=== PATIENT | female | born 1990 | race Caucasian/White ===

== ENCOUNTER 2017-04-21 19:33 | Emergency (ER) | payer MEDICAID, OTHER ==
[~2017-04-21 19:33] MED LIST: METO25TA3 PO
[2017-04-21 19:38] VITALS: BP 147/71; PULSE 68; RESP 18; TEMP 98.4; O2SAT 99
--- NOTE | 2017-04-21 20:15 | PD ---
HPI Chief Complaint: Cardiac Complaint Time Seen by Provider: 20:07 Travel History International Travel<30 days: No Contact w/Intl Traveler<30days: No Traveled to known affect area: No History of Present Illness HPI 26 yo F c/o L chest wall pain with a pinching quality for about one day. She is concerned her chronic poor dentition may have lead to an infection involving her pacemaker, placed for long QT syndrome 10 years prior. Concern for fracture of the PM wires also noted by patient. No fever. Pain in the L shoulder is also noted and worse with ROM. Tenderness along the L neck also noted. No trauma or excessive use. Pt noticed the pain when she woke up. No sob. PFSH Past Medical History Asthma: Yes Blood Disorders: No Anxiety: Yes Depression: Yes Heart Rhythm Problems: Yes (LONG QT SYNDROME) Cancer: No Cardiovascular Problems: Yes High Cholesterol: No Chest Pain: No Congestive Heart Failure: No COPD: No Diminished Hearing: No Endocrine: No Genitourinary: No Immune Disorder: No Implanted Vascular Access Dvce: Yes Musculoskeletal: No Neurologic: No Psychiatric: Yes Reproductive: No Respiratory: Yes Sleep Apnea: Yes : 3 Para: 3 Past Surgical History AICD: Yes (06/27/07, REPLACED ON 04/2012 [employer]) Body Medical Devices: AICD PLACEMENT Cardiac Surgery: Yes (AICD/PACER) Ear Surgery: Yes (TUBES) Tympanostomy Tube: Yes Other Surgery: Yes (TUBES IN EARS, AND AICD PLACEMENT) Social History Alcohol Use: No Tobacco Use: Yes (1/2 PPD) Substance Use: No Allergies-Medications (Allergen,Severity, Reaction): Coded Allergies: Darvocet-N 100 (Verified Allergy, Severe, FAINT, 04/21/17) Paxil (Verified Allergy, Severe, CONFUSION, 04/21/17) Reported Meds & Prescriptions Reported Meds & Active Scripts Active Metoprolol Tartrate 25 Mg Tab 25 Mg PO BID Review of Systems Except as stated in HPI: all other systems reviewed are Neg Physical Exam Narrative GENERAL: 26 yo F, WNWD, NAD SKIN: Warm and dry. HEAD: Atraumatic. Normocephalic. EYES: Pupils equal and round. No scleral icterus. No injection or drainage. ENT: No nasal bleeding or discharge. Mucous membranes pink and moist. NECK: Trachea midline. No JVD. CARDIOVASCULAR: Regular rate and rhythm. Pacer pocket non-tender without signs trauma/infection. RESPIRATORY: No accessory muscle use. Clear to auscultation. Breath sounds equal bilaterally. GASTROINTESTINAL: Abdomen soft, non-tender, nondistended. Hepatic and splenic margins not palpable. MUSCULOSKELETAL: Extremities without clubbing, cyanosis, or edema. No obvious deformities. NEUROLOGICAL: Awake and alert. No obvious cranial nerve deficits. Motor grossly within normal limits. Five out of 5 muscle strength in the arms and legs. Normal speech. PSYCHIATRIC: Appropriate mood and affect; insight and judgment normal. Data Data Last Documented VS Vital Signs Date Time Temp Pulse Resp B/P Pulse Ox O2 Delivery O2 Flow Rate FiO2 04/21/17 19:59 77 16 04/21/17 19:38 98.4 147/71 99 Room Air VS reviewed Orders Chest, Pa & Lat (04/21/17 ) Electrocardiogram (04/21/17 19:47) MDM Medical Decision Making Medical Screen Exam Complete: Yes Emergency Medical Condition: Yes Medical Record Reviewed: Yes Differential Diagnosis NSTEMI, unstable angina, coronary vasospasm, PE, PTX, aortic dissection, pericarditis, myocarditis, endocarditis, PNA, esophageal disease, aneurysm, musculoskeletal etiologies, anxiety, cocaine/sympathomimetic abuse Narrative Course EKG sinus rate 61 normal axis intervals, corrected QT interval 445 mS Last 24 hours Impressions Chest X-Ray 04/21/17 0000 Signed Impressions: Service Date/Time: April 20:38 - CONCLUSION: No evidence of acute cardiopulmonary disease. Lenny Torres MD The patient is resting comfortably and feels better, is alert and in no distress. The patients results and examination findings were discussed. The repeat examination is unremarkable and benign. The history, exam, diagnostic testing, and current condition do not suggest any significant pathology to warrant further testing, continued ED treatment, admission, or surgical evaluation at this point. The vital signs have been stable. The patient does not have uncontrollable pain, intractable vomiting, or other significant symptoms. The patient's condition is stable and appropriate for discharge. The patient will pursue further outpatient evaluation with a primary care physician or other designated or consulting physician as indicated in the discharge instructions. The patient expressed understanding and was agreeable with this plan. Diagnosis Primary Impression: Chest pain Qualified Code: R07.9 - Chest pain, unspecified type Referrals: Leslie Murillo MD, Vincent G DO Dayana,Flo H. MD Additional Instructions: You have a choice when it comes to health care, and we are glad that you chose [facility]. Hopefully, we have met your expectations on today's visit. You are welcome to return to [facility] at any time, as we are committed to meeting the health care needs of our community. Med/Other Pt SpecificInfo: No Change to Meds Disposition: 01 DISCHARGE HOME Condition: Ismael Barton MD Apr 21, 2017 20:14
--- NOTE | 2017-04-21 20:49 | RADRPT ---
EXAM DATE/TIME: 04/21/2017 20:38 [facility] COMPARISON: Report only CHEST SINGLE AP, March 04, 2013, 20:36. INDICATIONS : Chest pain in area of pacemaker. MEDICAL HISTORY : Long QT syndrome SURGICAL HISTORY : Pacemaker. ENCOUNTER: Initial ACUITY: 1 day PAIN SCORE: 7/10 LOCATION: Left upper chest FINDINGS: PA and lateral views of the chest demonstrate the lungs to be symmetrically aerated without evidence of mass, infiltrate or effusion. The cardiomediastinal contours are unremarkable. Osseous structure s are intact. Left subclavian transvenous cardiac pacer/defibrillator again noted. CONCLUSION: No evidence of acute cardiopulmonary disease. Lenny Torres MD on April 21, 2017 at 20:45 Board Certified Radiologist. This report was verified electronically.
--- NOTE | 2017-04-22 22:39 | EKG ---
Date Performed: 04/21/2017 Time Performed: 19:47:59 PTAGE: 26 years EKG: Sinus rhythm POSSIBLE RIGHT VENTRICULAR CONDUCTION DELAY BORDERLINE ECG PREVIOUS TRACING : 06/03/2013 01.47 DOCTOR: Ling Ramos Interpretating Date/Time 04/22/2017 22:37:48
== END 2017-04-21 21:25 | disposition home or self-care (01) ==
LOC: NEPC 19:33
DX: R07.89 Other chest pain (principal); J45.909 Unspecified asthma, uncomplicated; G47.30 Sleep apnea, unspecified; F17.210 Nicotine dependence, cigarettes, uncomplicated; Z95.0 Presence of cardiac pacemaker
CPT/HCPCS: 71020; 93005; 99284

== ENCOUNTER 2018-01-01 03:10 | Emergency (ER) | payer MEDICAID ==
[~2018-01-01] VITALS: Ht 152.4 cm; Wt 54.0 kg
[2018-01-01 03:14] VITALS: BP 158/82; PULSE 99; RESP 18; TEMP 98.1; O2SAT 100
--- NOTE | 2018-01-01 03:42 | PD ---
HPI Chief Complaint: Cold / Flu Symptoms Time Seen by Provider: 03:31 Travel History International Travel<30 days: No Contact w/Intl Traveler<30days: No Traveled to known affect area: No History of Present Illness HPI 27-year-old female patient with history of prolonged QT syndrome, currently being evaluated for MS, presents to the ER today for chest discomfort over the entire chest followed by coughing and shortness of breath, coughing up brownish phlegm, body aches and pains for the last 2 days. She denies any recent fevers , vomiting, or other symptoms. She states she has been around several sick people. Modifying Factors: None Associated Signs & Symptoms: Coughing, sore throat, chest discomfort, phlegm, shortness of breath Risk Factors: Sick contacts PFSH Past Medical History Asthma: Yes Blood Disorders: No Anxiety: Yes Depression: Yes Heart Rhythm Problems: Yes (LONG QT SYNDROME) Cancer: No Cardiovascular Problems: Yes High Cholesterol: No Chest Pain: No Congestive Heart Failure: No COPD: No Diminished Hearing: No Endocrine: No Gastrointestinal Disorders: No Genitourinary: No Hypertension: No Immune Disorder: No Implanted Vascular Access Dvce: Yes Musculoskeletal: No Neurologic: No Psychiatric: Yes Reproductive: No Respiratory: Yes Sleep Apnea: Yes ?: Unknown LMP: 12/01/17 : 4 Para: 4 Past Surgical History AICD: Yes (06/27/07, REPLACED ON 04/2012 [employer]) Body Medical Devices: AICD PLACEMENT Cardiac Surgery: Yes (AICD/PACER) Ear Surgery: Yes (TUBES) Tympanostomy Tube: Yes Other Surgery: Yes (TUBES IN EARS, AND AICD PLACEMENT) Social History Alcohol Use: No Tobacco Use: Yes (A 'FEW' A DAY ) Substance Use: No Allergies-Medications (Allergen,Severity, Reaction): Coded Allergies: acetaminophen (Verified Allergy, Severe, FAINT, 01/01/18) paroxetine (Verified Allergy, Severe, CONFUSION, 01/01/18) propoxyphene (Verified Allergy, Severe, FAINT, 01/01/18) Reported Meds & Prescriptions Reported Meds & Active Scripts Active Metoprolol Tartrate 25 Mg Tab 25 Mg PO BID Review of Systems Except as stated in HPI: all other systems reviewed are Neg Physical Exam Narrative GENERAL: Well-developed young female patient currently in mild distress. Awake and oriented 3. SKIN: Focused skin assessment warm/dry. HEAD: Atraumatic. Normocephalic. EYES: Pupils equal and round. No scleral icterus. No injection or drainage. ENT: No nasal bleeding or discharge. Mucous membranes pink and moist. NECK: Trachea midline. No JVD. Supple. CARDIOVASCULAR: Regular rate and rhythm. No murmur appreciated. RESPIRATORY: No accessory muscle use. Clear to auscultation. Breath sounds equal bilaterally. GASTROINTESTINAL: Abdomen soft, non-tender, nondistended. Hepatic and splenic margins not palpable. MUSCULOSKELETAL: No obvious deformities. No clubbing. No cyanosis. No edema. NEUROLOGICAL: Awake and alert. No obvious cranial nerve deficits. Motor grossly within normal limits. Normal speech. PSYCHIATRIC: Appropriate mood and affect; insight and judgment normal. Data Data Last Documented VS Vital Signs Date Time Temp Pulse Resp B/P (MAP) Pulse Ox O2 Delivery O2 Flow Rate FiO2 01/01/18 03:14 98.1 99 18 158/82 (107) 100 Orders Orders Electrocardiogram (01/01/18 03:31) Basic Metabolic Panel (Bmp) (01/01/18 03:31) Complete Blood Count With Diff (01/01/18 03:31) Troponin I (01/01/18 03:31) Ecg Monitoring (01/01/18 03:31) Iv Access Insert/Monitor (01/01/18 03:31) Oximetry (01/01/18 03:31) Oxygen Administration (01/01/18 03:31) Sodium Chloride 0.9% Flush (Ns Flush) (01/01/18 03:45) Chest, Pa & Lat (01/01/18 03:31) Influenzae A/B Antigen (01/01/18 03:31) Labs Laboratory Tests Test 01/01/18 03:55 White Blood Count 9.3 TH/MM3 Red Blood Count 4.62 MIL/MM3 Hemoglobin 14.6 GM/DL Hematocrit 42.0 % Mean Corpuscular Volume 90.8 FL Mean Corpuscular Hemoglobin 31.6 PG Mean Corpuscular Hemoglobin Concent 34.8 % Red Cell Distribution Width 13.3 % Platelet Count 184 TH/MM3 Mean Platelet Volume 8.6 FL Neutrophils (%) (Auto) 78.6 % Lymphocytes (%) (Auto) 10.4 % Monocytes (%) (Auto) 8.5 % Eosinophils (%) (Auto) 2.3 % Basophils (%) (Auto) 0.2 % Neutrophils # (Auto) 7.3 TH/MM3 Lymphocytes # (Auto) 1.0 TH/MM3 Monocytes # (Auto) 0.8 TH/MM3 Eosinophils # (Auto) 0.2 TH/MM3 Basophils # (Auto) 0.0 TH/MM3 CBC Comment DIFF FINAL Differential Comment Blood Urea Nitrogen 8 MG/DL Creatinine 0.57 MG/DL Random Glucose 87 MG/DL Calcium Level 8.4 MG/DL Sodium Level 139 MEQ/L Potassium Level 3.8 MEQ/L Chloride Level 108 MEQ/L Carbon Dioxide Level 25.8 MEQ/L Anion Gap 5 MEQ/L Estimat Glomerular Filtration Rate 126 ML/MIN Troponin I LESS THAN 0.02 NG/ML MDM Medical Decision Making Medical Screen Exam Complete: Yes Emergency Medical Condition: Yes Medical Record Reviewed: Yes Interpretation(s) EKG shows normal sinus rhythm at a rate of 89 bpm with no signs of acute ST elevations or depressions. She does has notable prolongation of QT. Laboratory Tests Test 01/01/18 03:55 Neutrophils (%) (Auto) 78.6 % (16.0-70.0) Monocytes (%) (Auto) 8.5 % (0.0-8.0) Calcium Level 8.4 MG/DL (8.5-10.1) Chloride Level 108 MEQ/L (98-107) Troponin I LESS THAN 0.02 NG/ML Differential Diagnosis Pneumonia versus bronchitis versus influenza versus URI versus dysrhythmias Narrative Course Chest x-ray did not show any signs of acute pulmonary process. Lab work otherwise shows no significant metabolic issues. EKG did not show significant dysrhythmias. Symptoms are most indicative of a viral syndrome. At this point , my plan would be to treat her symptomatically for viral syndrome and have her follow-up with primary care doctor. Return for any worsening in symptoms as necessary. The plan has been discussed with her and she states understanding. Influenza testing was negative as well. Diagnosis Primary Impression: Bronchitis Med/Other Pt SpecificInfo: Prescription(s) given Scripts Benzonatate (Tessalon Perles) 100 Mg Cap 100 MG PO TID Y for COUGH, #15 CAP 0 Refills Prov: Leila Guerrero MD 01/01/18 Ibuprofen (Ibuprofen) 600 Mg Tab 600 MG PO Q6H Y for PAIN, #20 TAB 0 Refills Prov: Leila Guerrero MD 01/01/18 Disposition: 01 DISCHARGE HOME Condition: Stable Leila Guerrero MD Jan 01, 2018 03:42
[2018-01-01] MEDS ORDERED: SODIUM CHLORIDE 0.9% FLUSH 10 ML FLUSH IVF PRN (03:45)
--- NOTE | 2018-01-01 04:00 | RADRPT ---
EXAM DATE/TIME: 01/01/2018 03:40 [facility] COMPARISON: CHEST PA & LAT, April 21, 2017, 20:38. INDICATIONS : Cough and shortness of breath. MEDICAL HISTORY : Long QT syndrome SURGICAL HISTORY : Pacemaker. ENCOUNTER: Initial ACUITY: 2 days PAIN SCORE: 7/10 LOCATION: Bilateral chest superior FINDINGS: PA and lateral views of the chest demonstrate the lungs to be symmetrically aerated without evidence of mass, infiltrate or effusion. The cardiomediastinal contours are unremarkable. Osseous structure s are intact. Cardiac pacer/defibrillator again noted. CONCLUSION: No pneumonia or other acute abnormality. Lenny Torres MD on January 01, 2018 at 3:58 Board Certified Radiologist. This report was verified electronically.
[2018-01-01 04:25] LABS: AUTOMATED NEUTROPHIL # 7.3 TH/MM3 (1.8-7.7); BASOPHIL % 0.2 % (0.0-2.0); EOSINOPHIL # 0.2 TH/MM3 (0-0.4); EOSINOPHIL % 2.3 % (0.0-4.0); HEMOGLOBIN 14.6 GM/DL (11.6-15.3); LYMPH % 10.4 % (9.0-44.0); MEAN CELL VOLUME 90.8 FL (80.0-100.0); MEAN CORPUSCULAR HEMOGLOBIN 31.6 PG (27.0-34.0); MEAN CORPUSCULAR HGB CONC 34.8 % (32.0-36.0); MEAN PLATELET VOLUME 8.6 FL (7.0-11.0); MONO % 8.5 % (0.0-8.0); MONOCYTE # 0.8 TH/MM3 (0-0.9); NEUT % 78.6 % (16.0-70.0); PLATELET COUNT 184 TH/MM3 (150-450); RED BLOOD COUNT 4.62 MIL/MM3 (4.00-5.30); RED CELL DISTRIBUTION WIDTH 13.3 % (11.6-17.2); WHITE BLOOD COUNT 9.3 TH/MM3 (4.0-11.0)
[2018-01-01 04:35] LABS: BICARBONATE 25.8 MEQ/L (21.0-32.0); BLOOD UREA NITROGEN 8 MG/DL (7-18); CALCIUM 8.4 MG/DL (8.5-10.1); CHLORIDE 108 MEQ/L (98-107); CREATININE 0.57 MG/DL (0.50-1.00); GLOMERULAR FILTRATION RATE 126 ML/MIN (>89); GLUCOSE,RANDOM 87 MG/DL (74-106); SODIUM (NA) 139 MEQ/L (136-145)
[2018-01-01 04:38] LABS: TROPONIN I LESS THAN 0.02 NG/ML (0.02-0.05)
[2018-01-01] MEDS ORDERED: IBUP-232 PO (04:56)
[2018-01-01] MEDS ORDERED: BENZ100 PO (04:56)
--- NOTE | 2018-01-01 09:16 | EKG ---
Date Performed: 01/01/2018 Time Performed: 03:50:25 PTAGE: 27 years EKG: Sinus rhythm NORMAL ECG PREVIOUS TRACING : 04/21/2017 19.47 No significant change from previous tracing noted. DOCTOR: Flo Anne Interpretating Date/Time 01/01/2018 09:15:27
== END 2018-01-01 05:20 | disposition home or self-care (01) ==
LOC: NEPC 03:10
DX: J45.909 Unspecified asthma, uncomplicated (principal); F41.9 Anxiety disorder, unspecified; F32.9 Major depressive disorder, single episode, unspecified; F17.200 Nicotine dependence, unspecified, uncomplicated; Z95.810 Presence of automatic (implantable) cardiac defibrillator
CPT/HCPCS: 71046; 80048; 84484; 85025; 87804; 93005